=== PATIENT | male | born 1970 | race African-American/Black ===

== ENCOUNTER 2017-02-21 11:17 | Emergency (ER) | payer MEDICAID ==
[~2017-02-21] VITALS: Ht 180.3 cm; Wt 96.2 kg
[2017-02-21 11:49] VITALS: BP 122/77
== END 2017-02-21 12:52 | disposition home or self-care (01) ==
LOC: ER 11:17
DX: S90.31XA Contusion of right foot, initial encounter (principal); W17.89XA Other fall from one level to another, initial encounter; Y93.33 Activity, BASE jumping; Y99.8 Other external cause status; Y92.89 Other specified places as the place of occurrence of the external cause
CPT/HCPCS: 73700